=== PATIENT | female | born 1995 | race Caucasian/White ===

== ENCOUNTER 2018-03-01 10:52 | Emergency (ER) | payer BC, OTHER ==
[~2018-03-01] VITALS: Ht 160 cm; Wt 65.8 kg
[2018-03-01] MEDS ORDERED: PRENATAL VITAM1 EAC7 PO (11:02)
== END 2018-03-01 14:16 | disposition home or self-care (01) ==
LOC: ED 10:52
DX: O99.89 Other specified diseases and conditions complicating pregnancy, childbirth and the puerperium (principal); R06.02 Shortness of breath; R42 Dizziness and giddiness; Z87.891 Personal history of nicotine dependence; Z79.899 Other long term (current) drug therapy; Z3A.32 32 weeks gestation of pregnancy
CPT/HCPCS: 80053; 81001; 85025; 99284

== ENCOUNTER 2018-04-21 08:45 | Inpatient (IN) | payer BC, OTHER ==
[~2018-04-21 08:45] MED LIST: PRENATAL VITAM1 EAC7 PO
--- NOTE | 2018-04-21 12:14 | PR ---
[facility] [address] [facility] [place], [place] [address] Signed Progress Notes IP Datetime Report Generated by CPN: 04/21/2018 12:14 PROGRESS NOTES: [id number] Impression: Normal progression of labor Procedures: Artificial ROM Plan: Continue present management; Anticipate Vaginal Delivery VITAL SIGNS: [id number] EXAM: [id number] Dilatation: 5.5 Effacement: 80 Station: 0 Uterine Contractions: every 4-6 minutes MEMBRANES: [id number] Membrane Status: Ruptured Amniotic Fluid Color: Bloody ROM Note: AROM without difficluty, with thin bloody fluid Comments: Tolerating contractions, but would like Epidural soon. Epidural ordered. Fetus A: [id number] FHR Baseline: 135 Variability: Moderate 6-25bpm Accelerations: 15X15 Presentation: Vertex Fetus B: [id number] Signing Physician: Nanci Dubose MD Copies: ~ *Electronically Signed* 04/21/18 1214 NANCI DUBOSE MD PATIENT NAME: NICOLE MACHADO PROGRESS NOTE DATE OF : 93 PHYSICIAN: NANCI DUBOSE MD RPT #: [id number] REPORT IS CONFIDENTIAL AND NOT TO BE RELEASED WITHOUT AUTHORIZATION
--- NOTE | 2018-04-22 09:37 | PR ---
[facility] [address] [facility] [place] [address] Signed PP Progress Notes Datetime Report Generated by CPN: 04/22/2018 09:37 SUBJECTIVE: [id number] Pain: Within normal limits Nausea/Vomiting: Denies Vital Signs: [id number] Vital Signs: Reviewed; Within Normal Limits Notable Details: PP Hgb/Hct = 10.6/30.6 EXAM: [id number] Abdomen/Uterus: Normal Lochia: Normal Extremities: Normal IMPRESSION/PLAN/PROCEDURES: [id number] Impression: Normal progression Plan: Continue present management Procedures: None Progress Notes: Doing well, without complaint. Signing Physician: Nanci Dubose MD Copies: ~ *Electronically Signed* 04/22/18 0937 NANCI DUBOSE MD PATIENT NAME: NICOLE MACHADO PROGRESS NOTE DATE OF : 93 PHYSICIAN: NANCI DUBOSE MD RPT #: [id number] REPORT IS CONFIDENTIAL AND NOT TO BE RELEASED WITHOUT AUTHORIZATION
--- NOTE | 2018-04-23 12:53 | PR ---
[facility] [address] [place] [address] Signed PP Progress Notes Datetime Report Generated by CPN: 04/23/2018 12:53 SUBJECTIVE: [id number] Pain: Within normal limits Nausea/Vomiting: Denies Vital Signs: [id number] Vital Signs: Reviewed; Within Normal Limits Notable Details: PP Hgb/Hct = 10.6/30.6 EXAM: [id number] Abdomen/Uterus: Normal Lochia: Normal Extremities: Normal Incision: Normal IMPRESSION/PLAN/PROCEDURES: [id number] Impression: Normal progression Plan: Discharge Procedures: None Progress Notes: Doing well, wants to go home. Signing Physician: Nanci Dubose MD Copies: ~ *Electronically Signed* 04/23/18 1253 NANCI DUBOSE MD PATIENT NAME: NICOLE MACHADO PROGRESS NOTE DATE OF : 93 PHYSICIAN: NANCI DUBOSE MD RPT #: [id number] REPORT IS CONFIDENTIAL AND NOT TO BE RELEASED WITHOUT AUTHORIZATION
== END 2018-04-23 14:10 | disposition home or self-care (01) | DRG 775 ==
LOC: FBCO 08:45 → FBC 11:05
PROVIDERS: ADMIT General Practice
PROC: 10E0XZZ Delivery of Products of Conception, External Approach (ICD-10-PCS; principal; 2018-04-21)
DX: O80 Encounter for full-term uncomplicated delivery (principal); Z37.0 Single live birth; Z3A.39 39 weeks gestation of pregnancy
CPT/HCPCS: 01960; 36415; 59025; 85027; 99214; J2590; J7120